=== PATIENT | male | born 1940 | race Caucasian/White ===

== ENCOUNTER 2018-10-31 07:05 | Day surgery (SDC) | payer OTHER ==
[2018-10-27 15:45] VITALS: BP 119/52
[2018-10-27 15:51] LABS: BASOPHILS % (AUTO) 3.1 % (0.0-5.0); EOSINOPHILS % (AUTO) 5.9 % (0.0-8.0); HEMATOCRIT 35.9 % (42-54); LYMPHOCYTES % (AUTO) 23.9 % (21.0-51.0); MEAN CORPUSCULAR HEMOGLOBIN 30.2 pg (27.0-33.0); MEAN CORPUSCULAR HGB CONC 33.9 g/dL (32.0-36.0); MONOCYTES % (AUTO) 8.5 % (3.0-13.0); NEUTROPHILS % (AUTO) 58.6 % (40.0-77.0); PLATELET COUNT (AUTO) 226 K/uL (130-400); RED BLOOD CELL COUNT(AUTO) 4.04 MIL/uL (4.50-6.20); RED CELL DISTRIBUTION WIDTH 15.9 % (11.0-15.5); WHITE BLOOD COUNT (AUTO) 6.4 K/uL (4.8-10.8)
[2018-10-27 16:05] LABS: ALBUMIN 3.7 g/dL (3.5-5.0); BILIRUBIN,DIRECT 0.5 mg/dL (0.0-0.3); BILIRUBIN,TOTAL 1.1 mg/dL (0.2-1.0); POTASSIUM 4.1 mmol/L (3.5-5.1)
[2018-10-31] VITALS (17 sets, daily range): BP systolic 108–135; BP diastolic 53–68
[~2018-10-31] VITALS: Ht 182.9 cm; Wt 86.5 kg
[2018-10-31] MEDS ORDERED: LIDOCAINE PF 2% 5ML ABBOJECT ONE (08:15)
[2018-10-31] MEDS: LACTATED RINGERS 1000ML 1,000 ML IV SCH ×2 (08:15→09:25)
[2018-10-31] MEDS ORDERED: PROPOFOL 10 MG/ML 20ML VIAL IV ONE (08:15)
[2018-10-31] MEDS ORDERED: ONDANSETRON HCL 4 MG/2 ML VIAL ONE (08:16)
[2018-10-31] MEDS ORDERED: MIDAZOLAM HCL 1 MG/ML 2ML VIAL ONE (08:16)
[2018-10-31] MEDS ORDERED: ROCURONIUM 10MG/1ML SYR 10 MG/ML ML ONE (08:16)
[2018-10-31] MEDS ORDERED: FENTANYL CITRATE PF 50 MCG/1 ML 2ML VIAL ONE (08:22)
[2018-10-31] MEDS ORDERED: HEPARIN SODIUM 1000UNIT/ML 10ML VIAL ONE (08:43)
[2018-10-31] MEDS ORDERED: ESMOLOL HCL 10 MG/ML 10 ML VIAL ONE (08:43)
[2018-10-31] MEDS ORDERED: NEOSTIGMINE 5MG/5ML SYR IV ONE (09:07)
[2018-10-31] MEDS ORDERED: GLYCOPYRROLATE 1 MG/5 ML SYRINGE ONE (09:07)
[2018-10-31] MEDS ORDERED: KETOROLAC TROMETHAMINE 30MG/ML ONE (09:09)
--- NOTE | 2018-10-31 10:25 | NUR ---
RECEIVE PT RECEIVED FROM PACU VIA STRETCHER AWAKE ALERT ORIENTED X3. PT STABLE. NO COMPLAINTS MADE. ABDOMEN SOFT. BAND AID DRESSINGS X4 TO ABDOMEN DRY AND INTACT, NO BLEEDING NOTED, SITE NO SWELLING NOTED. WILL CONTINUE TO MONITOR PT. CALL FERRARA WITHIN REACH. WILL CALL FOR TO COME IN TO ROOM.
--- NOTE | 2018-10-31 11:05 | NUR ---
DISCHARGE PT DISCHARGED VIA WHEELCHAIR WITH . STABLE. NO COMPLAINTS MADE. ABDOMEN REMAINS SOFT, DRESSINGS X4 TO ABDOMEN DRY AND INTACT, NO BLEEDING OR OOZING NOTED. PT TOLERATED ORAL FLUIDS WELL. DISCHARGE INSTRUCTIONS GIVEN TO AND PT, VERBALIZED UNDERSTANDING.
== END 2018-10-31 11:05 | disposition home or self-care (01) ==
LOC: DAH 07:05
PROVIDERS: ATTEND Surgery
DX: K80.10 Calculus of gallbladder with chronic cholecystitis without obstruction (principal); N40.1 Benign prostatic hyperplasia with lower urinary tract symptoms; N13.8 Other obstructive and reflux uropathy; E66.3 Overweight; F15.90 Other stimulant use, unspecified, uncomplicated; Z68.25 Body mass index [BMI] 25.0-25.9, adult; Z90.49 Acquired absence of other specified parts of digestive tract; Z98.890 Other specified postprocedural states; Z79.899 Other long term (current) drug therapy
CPT/HCPCS: 36415; 47562; 80048; 80076; 85025; 88304; A4450; A4600; C1769 ×4; J1644; J1885; J2001; J2250; J2405; J2704; J2710; J3010; J3490 ×2; J7030; J7120 ×2